=== PATIENT | female | born 1970 | race African-American/Black ===

== ENCOUNTER 2019-05-02 06:54 | Emergency (ER) | payer MEDICARE, MEDICAID ==
[~2019-05-02] VITALS: Ht 160 cm; Wt 99.8 kg
--- NOTE | 2019-05-02 07:20 | NUR ---
[id number] C/O MIDSTERNAL CHEST PAIN X4 HOURS RADIATING TO L ARM TO ER BED 2 AWAITING MED EVAL VSS
[2019-05-02] MEDS ORDERED: ASPIRIN 81 MG TAB.CHEW PO ONE (07:30)
[2019-05-02] MEDS ORDERED: ASPIRIN 81 MG TAB.CHEW ONE ×2 (07:32→07:34)
--- NOTE | 2019-05-02 08:05 | NUR ---
PATIENT RECEIVED RESTING INSIDE ROOM. AWAKE, ALERT AND ORIENTED X 3. NO ACUTE DISTRESS. CONNECTED TO MONITOR. VS STABLE.
[2019-05-02 08:11] LABS: CARBON DIOXIDE 28 mmol/L (21-32); CHLORIDE 108 mmol/L (98-107); POTASSIUM 4.1 mmol/L (3.5-5.1); SODIUM SERUM 141 mmol/L (136-145)
[2019-05-02 08:12] LABS: CALCIUM, SERUM 8.9 mg/dL (8.5-10.1); CREATININE 1.8 mg/dL (0.6-1.3); GLUCOSE 130 mg/dL (74-106); UREA NITROGEN, BLOOD 31 mg/dL (7-18)
[2019-05-02 08:29] LABS: BASOPHILS # (AUTO) 0.1 /CMM (0.0-0.2); HEMATOCRIT 30 % (33-45); HEMOGLOBIN 9.9 g/dL (11.5-14.8); LYMPHOCYTES % (AUTO) 28.4 % (20.0-44.0); MEAN CORPUSCULAR HGB CONC 33 g/dl (31.0-36.0); MEAN CORPUSCULAR VOLUME 87 fL (82-100); MONOCYTES # (AUTO) 0.7 /CMM (0.1-1.30); MONOCYTES % (AUTO) 9.8 % (2.0-12.0); NEUTROPHILS % (AUTO) 57.8 % (43.0-81.0); PLATELET COUNT (AUTO) 285 /CMM (150-450); RED BLOOD CELL COUNT(AUTO) 3.44 MIL/uL (4.0-5.2)
[2019-05-02 08:40] VITALS: BP 141/70
--- NOTE | 2019-05-02 08:51 | NUR ---
PATIENT CAME TO NURSING STATION SAYING TAHT SHE WANTS TO LEAVE. RISKS AND BENEFITS EXPLAINED BUT TO NO AVAIL. PATIENT STRONGLY INSISTED ON LEAVING THE ER. AMA FORM SIGNED. IV REMOVED WITH TIP INTACT, PRESSURE DRESSING PLACED ON SITE. ID BAND REMOVED. DR QUINTERO AWARE OF AMA. QUICK[employer]OOKS BOOKKEEPER AWARE
[2019-05-02 20:05] LABS: APPEARANCE,URINE CLEAR (CLEAR); BILIRUBIN,URINE NEGATIVE (NEGATIVE); BLOOD, URINE NEGATIVE Ery/uL (NEGATIVE); COLOR,URINE YELLOW (YELLOW); KETONES,URINE NEGATIVE (NEGATIVE); LEUKOCYTE ESTERASE ,URINE NEGATIVE (NEGATIVE); NITRITE, URINE NEGATIVE (NEGATIVE); PROTEIN,URINE 100 mg/dl (NEGATIVE); UGLUCOSE NEGATIVE (NEGATIVE); UROBILINOGEN,URINE 0.2 EU/dL (0.2)
== END 2019-05-02 08:55 | disposition left against medical advice (07) ==
LOC: ER 06:55
DX: R07.89 Other chest pain (principal); E11.22 Type 2 diabetes mellitus with diabetic chronic kidney disease; I12.9 Hypertensive chronic kidney disease with stage 1 through stage 4 chronic kidney disease, or unspecified chronic kidney disease; N18.9 Chronic kidney disease, unspecified
CPT/HCPCS: 36415; 71045-TC; 80048-TC; 81000-TC; 84484-TC; 84703-TC; 85025-TC